=== PATIENT | male | born 1955 | race Caucasian/White ===

== ENCOUNTER → 2016-11-08 | Outpatient (CLI) | payer MEDICARE, OTHER ==
[2016-11-08 13:15] LABS: BUN/CREATININE RATIO 23 (0-10)
== END ==
LOC: HH 12:24
PROVIDERS: Internal Medicine
DX: K74.60 Unspecified cirrhosis of liver (principal); I50.9 Heart failure, unspecified; K76.6 Portal hypertension
CPT/HCPCS: 80053; 82140